=== PATIENT | female | born 1955 | race Caucasian/White ===

== ENCOUNTER 2020-07-03 12:37 | Outpatient (REF) | payer MEDICARE, MEDICAID, SELFPAY ==
--- NOTE | 2020-07-03 | XR_ITS ---
EXAMINATION: XR CHEST CLINICAL INFORMATION: Cough COMPARISON: Previous chest x-ray was recent May 2018 TECHNIQUE: 2 views of the chest were obtained. FINDINGS: The cardiac and mediastinal contours are stable. The lungs are clear. There is no pleural effusion or pneumothorax. There are degenerative changes of the spine. XR/XR chest 2V IMPRESSION: No evidence for acute disease in the chest.
== END 2020-07-03 12:38 | disposition home or self-care (01) ==
LOC: HO.HMGCX 12:37
PROVIDERS: PCP Internal Medicine; Referring Provider Internal Medicine; Visit Provider Nurse Practitioner Family
DX: Z20.828 Contact with and (suspected) exposure to other viral communicable diseases (principal); R05 Cough; R68.89 Other general symptoms and signs
CPT/HCPCS: 71046; 87635

== ENCOUNTER 2020-09-11 13:29 | Outpatient (REF) | payer MEDICARE, MEDICAID, SELFPAY ==
--- NOTE | 2020-09-11 13:32 | XR_ITS ---
EXAMINATION: XR CHEST CLINICAL INFORMATION: Chondrocostal junction syndrome. COMPARISON: None TECHNIQUE: 2 views of the chest were obtained. FINDINGS: No significant abnormality is noted involving the heart, lungs, mediastinum, bony thorax or soft tissues. XR/XR chest 2V IMPRESSION: Unremarkable chest examination.
== END 2020-09-11 13:30 | disposition home or self-care (01) ==
LOC: HO.HMGCX 13:29
PROVIDERS: PCP Internal Medicine; Visit Provider Nurse Practitioner Family
DX: M94.0 Chondrocostal junction syndrome [Tietze] (principal)
CPT/HCPCS: 71046

== ENCOUNTER 2020-09-21 14:34 | Emergency (ER) | payer MEDICARE, MEDICAID, SELFPAY ==
--- NOTE | 2020-09-21 | ECG_ITS ---
Test Reason : CHEST PRESSURE Blood Pressure : / mmHG Vent. Rate : 071 BPM Atrial Rate : 071 BPM P-R Int : 138 ms QRS Dur : 074 ms QT Int : 392 ms P-R-T Axes : 043 014 102 degrees QTc Int : 425 ms Normal sinus rhythm Nonspecific T wave abnormality Abnormal ECG When compared with ECG of 27-MAY-2018 15:03, No significant change was found Referred By: Generic ED Physician Electronically Signed By:SARWAT QUAN MD
[2020-09-21 15:17] VITALS: BP 153/68; PULSE 89; RESP 18; TEMP 36.5; O2SAT 98; BMI 31.4
--- NOTE | 2020-09-21 15:18 | XR_ITS ---
EXAMINATION: XR CHEST CLINICAL INFORMATION: Left-sided chest pain COMPARISON: Previous chest x-rays most recent 09/11/2020 TECHNIQUE: Frontal view of the chest was obtained. FINDINGS: No significant abnormality is noted involving the heart, lungs, mediastinum, bony thorax or soft tissues. XR/XR chest 1V IMPRESSION: Unremarkable examination.
--- NOTE | 2020-09-21 15:19 | ED_ITS ---
HPI - Chest Pain General Chief Complaint: Chest Pain Stated Complaint: chest pain Time Seen by Provider: 09/21/20 15:17 Source: patient Mode of arrival: ambulatory Limitations: no limitations History of Present Illness HPI narrative: 65 yo female with history of DM on insulin, HTN, fibromyalgia who presents with persistent left sided chest pain for the last 3 weeks. She also reports intermittent palpitations. She was seen in Urgent Care on 09/11 - diagnosed with costochondritis, pain was reproducible and she had normal CXR and EKG at that time. She reports continued pain on the left side and intermittent palpitations. She has a history of similar episodes and had a negative cardiac workup in the past. She denies fever, chills, cough, nausea, vomiting, abdominal pain. She denies trauma. No personal history of heart disease. No family history of clots. MD complaint: chest pain Onset (ago): week(s) (3-4) Timing of current episode: constant Prior episodes: Yes Onset: during rest and during exertion Pain location: left chest Pain radiation: none Severity: moderate Quality: aching and heaviness Relieving factors: nothing Exacerbating factors: exertion and movement Associated symptoms: dyspnea and palpitations Treatment prior to arrival: none Risk Factors Coronary artery disease risk factors: diabetes, hyperlipidemia and hypertension Thoracic aortic dissection risk factors: none Related Data On Oral Contraceptives: No Home Medications Medication Instructions Recorded Confirmed albuterol sulfate 90 mcg/actuation INHALATION 09/11/20 aerosol inhaler aspirin 81 mg tablet,delayed 81 mg PO DAILY 09/11/20 release blood sugar diagnostic #10 ea 09/11/20 buspirone 10 mg tablet 10 mg PO BID 09/11/20 famotidine 40 mg tablet 40 mg PO DAILY 09/11/20 flu vac qs 2019(4 yr up)CD(PF) ml IM 09/11/20 fluticasone propionate 50 INTRANASAL 09/11/20 mcg/actuation nasal spray,suspension insulin detemir U-100 100 unit/mL 24 unit SUBCUT DAILY 09/11/20 (3 mL) subcutaneous pen insulin glargine 100 unit/mL (3 unit SUBCUT 09/11/20 mL) subcutaneous pen insulin lispro 100 unit/mL unit SUBCUT 09/11/20 subcutaneous pen ketotifen fumarate 0.025 % (0.035 1 drp OPHTHALMIC (EYE) BID PRN 09/11/20 %) eye drops lancets 28 gauge #100 ea 09/11/20 lisinopril 2.5 mg tablet 2.5 mg PO DAILY 09/11/20 meloxicam 7.5 mg tablet 7.5 mg PO BID 09/11/20 cjxrqyne-lwuxllnqq-ubkrwlfdo 3.5 ml OTIC (EARS) 09/11/20 mg/mL-10,000 unit/mL-1 % ear solution nystatin 100,000 unit/gram topical TOPICAL BID 09/11/20 cream rosuvastatin 20 mg tablet 20 mg PO BEDTIME 09/11/20 Previous Rx's Medication Instructions Recorded cyclobenzaprine 5 mg tablet 5 mg PO BEDTIME PRN #10 tab 09/11/20 cyclobenzaprine 5 mg tablet 5 mg PO BID PRN #10 tab 09/12/20 Allergies Allergy/AdvReac Type Severity Reaction Status Date / Time metformin [METFORMIN] Allergy Unknown NAUSEA Unverified 05/24/20 15:36 Review of Systems Review of Systems: Constitutional: No Fever, No Chills ENT/Mouth: No sore throat, No Rhinorrhea, No Swallowing Difficulty Cardiovascular: + Chest Pain, + SOB, No Orthopnea, No Edema, +palpitations Respiratory: No Cough, No Sputum, No Wheezing, +dyspnea Gastrointestinal: No Nausea, No Vomiting, No Diarrhea, No abdominal Pain Genitourinary: No Dysuria, No Urinary Frequency, No Hematuria Musculoskeletal: No joint pain, No Myalgias Skin: No Skin Lesions, No rash Neuro: No Weakness, No Numbness, No Dizziness, No Headache Psych: No Anxiety/Panic, No Depression [facility] Past Medical History Attestation statement: The following information was validated with the patient. Social History Social History Advance Directives: No Advance Directives Information Provided: No Physical Exam Vital Signs: Vital Signs: Last Vital Signs Temp 97.7 F 09/21/20 15:17 Pulse 89 09/21/20 15:17 Resp 18 09/21/20 15:17 BP 153/68 H 09/21/20 15:17 Pulse Ox 98 09/21/20 15:17 Body Mass Index 31.4 Appearance: Alert. Oriented X3. No acute distress. Eyes: Pupils equal, round and reactive to light. ENT: Pharynx normal. Neck: Normal inspection. Neck supple. CVS: Normal heart rate and rhythm. Pulses normal. Anterior chest wall tenderness on the left, especially under left breast Respiratory: No respiratory distress. Breath sounds normal. Abdomen: Soft and nontender. +BS x4 Skin: Skin warm and dry. Normal skin color. Normal skin turgor. No rashes. Extremities: No lower extremity edema. Negative Jerson's sign Neuro: Oriented X 3. No motor deficit. No sensory deficit. Course Course Course Narrative: 65 yo female here with 3-4 weeks of left sided, re-producible chest pain with intermittent palpitations and SOB. Doubt ACS given duration of symptoms. Will need to r/o PE - Ddimer ordered as well as EKG, troponin, CXR. She appears well on exam and pain continues to be reproducible consistent with musculoskeletal pain. Will give dose of Toradol and reassess. Reevaluation(s) Reevaluation #1: Troponin mildly elevated at 8.9. - will get repeat in 3 hours. BNP is normal. Viral resp panel is negative. CXR normal. DDIMER is pending. Signed out to Mark Casas PA-C who will assume care. MDM - Chest Pain Lab Data Result diagrams: 09/21/20 15:58 09/21/20 15:58 Labs: Lab Results 09/21/20 09/21/20 09/21/20 Range/Units 15:58 15:58 15:58 WBC 12.8 H (4.8-10.8) X10*3/uL RBC 4.37 (4.20-5.50) X10*6/uL Hgb 12.0 (12.0-16.0) g/dl Hct 37.8 (37-47) % MCV 86.5 (80-98) fL MCH 27.5 (27.0-33.0) pg MCHC 31.7 (31.0-35.0) g/dl RDW 14.1 (11.0-16.0) % Plt Count 253 (160-400) X10*3/uL MPV 11.8 (9.4-12.3) fL Immature Gran % (Auto) 0.3 (0.0-0.4) % Neut % (Auto) 78.9 H (45-73) % Lymph % (Auto) 14.6 L (20-40) % [place] % (Auto) 5.0 (2-11) % Eos % (Auto) 0.9 (0-4) % Baso % (Auto) 0.3 (0-2) % Lymph # (Auto) 1.9 (1.2-4.9) X10*3/uL [place] # (Auto) 0.6 (0.1-1.2) X10*3/uL Eos # (Auto) 0.1 (0.0-0.4) X10*3/uL Baso # (Auto) 0.0 (0.0-0.2) X10*3/uL Abs Immat Gran (auto) 0.04 H (0.00-0.03) X10*3/uL Absolute Neuts (auto) 10.1 H (2.0-8.3) X10*3/uL Absolute Nucleated RBC 0.000 (0.0-0.012) X10*3/uL Nucleated RBC % (auto) 0.0 (0.0-0.2) /100WBC Sodium 139 (135-145) mmol/L Potassium 5.1 (3.3-5.1) mmol/l Chloride 106 (96-108) mmol/L Carbon Dioxide 22 (22-29) mmol/L Anion Gap 16 (12-20) BUN 14 (9-16) mg/dL Creatinine 0.83 (0.5-1.4) mg/dL Estim Creat Clear Calc 72.3 Estimated GFR > 60 Random Glucose 244 H (60-115) mg/dL Calcium 9.1 (8.4-10.2) mg/dL Magnesium 1.9 (1.6-2.6) mg/dL Troponin I High Sens 8.9 (<3.5-17.0) ng/L C-Reactive Protein 0.36 (< or = 0.50) mg/dL B-Natriuretic Peptide 24 (<100) pg/mL Coronavirus (PCR) (Negative) Influenza Type A (PCR) (Negative) Influenza Type B (PCR) (Negative) RSV RNA Qual (PCR) (Negative) 09/21/20 Range/Units 16:04 WBC (4.8-10.8) X10*3/uL RBC (4.20-5.50) X10*6/uL Hgb (12.0-16.0) g/dl Hct (37-47) % MCV (80-98) fL MCH (27.0-33.0) pg MCHC (31.0-35.0) g/dl RDW (11.0-16.0) % Plt Count (160-400) X10*3/uL MPV (9.4-12.3) fL Immature Gran % (Auto) (0.0-0.4) % Neut % (Auto) (45-73) % Lymph % (Auto) (20-40) % [place] % (Auto) (2-11) % Eos % (Auto) (0-4) % Baso % (Auto) (0-2) % Lymph # (Auto) (1.2-4.9) X10*3/uL [place] # (Auto) (0.1-1.2) X10*3/uL Eos # (Auto) (0.0-0.4) X10*3/uL Baso # (Auto) (0.0-0.2) X10*3/uL Abs Immat Gran (auto) (0.00-0.03) X10*3/uL Absolute Neuts (auto) (2.0-8.3) X10*3/uL Absolute Nucleated RBC (0.0-0.012) X10*3/uL Nucleated RBC % (auto) (0.0-0.2) /100WBC Sodium (135-145) mmol/L Potassium (3.3-5.1) mmol/l Chloride (96-108) mmol/L Carbon Dioxide (22-29) mmol/L Anion Gap (12-20) BUN (9-16) mg/dL Creatinine (0.5-1.4) mg/dL Estim Creat Clear Calc Estimated GFR Random Glucose (60-115) mg/dL Calcium (8.4-10.2) mg/dL Magnesium (1.6-2.6) mg/dL Troponin I High Sens (<3.5-17.0) ng/L C-Reactive Protein (< or = 0.50) mg/dL B-Natriuretic Peptide (<100) pg/mL Coronavirus (PCR) NEGATIVE (Negative) Influenza Type A (PCR) NEGATIVE (Negative) Influenza Type B (PCR) NEGATIVE (Negative) RSV RNA Qual (PCR) NEGATIVE (Negative) ECG Data ECG #1: Attestation: I personally reviewed and interpreted this ECG as follows: ECG interpretation date: 09/21/20 ECG interpretation time: 15:23 Prior ECG tracings: available for review Interpretation: normal sinus rhythm, HR 71 bpm, nonspecific T wave abnormality, normal MD interval, normal QTc, no ST segment elevations Discharge Plan Discharge Prescriptions: No Action (DME) FreeStyle Lite Strips Strip See Rx Instructions ea Not Applicable TID Qty: 10 RF: 0 aspirin 81 mg tablet,delayed release (DR/EC) 81 mg PO DAILY RF: 0 rosuvastatin 20 mg tablet 20 mg PO BEDTIME RF: 0 famotidine 40 mg tablet 40 mg PO DAILY RF: 0 Lantus Solostar U-100 Insulin 100 unit/mL (3 mL) insulin pen subcut RF: 0 fluticasone propionate 50 mcg/actuation spray,suspension intranasal RF: 0 albuterol sulfate 90 mcg/actuation HFA aerosol inhaler inhalation RF: 0 Flucelvax Quad [id number] (PF) 60 mcg (15 mcg x 4)/0.5 mL syringe IM RF: 0 gtoowgbp-jmpdvhueq-VQ 3.5-10,000-1 mg/mL-unit/mL-% solution otic (ears) RF: 0 ketotifen fumarate 0.025 % (0.035 %) drops 1 drp ophthalmic (eye) BID PRNRF: 0 lisinopril 2.5 mg tablet 2.5 mg PO DAILY RF: 0 nystatin 100,000 unit/gram cream topical BID RF: 0 Levemir FlexTouch U-100 Insuln 100 unit/mL (3 mL) insulin pen 24 unit subcut DAILY RF: 0 insulin lispro 100 unit/mL insulin pen subcut RF: 0 (DME) lancets 28 gauge misc See Rx Instructions ea topical TID Qty: 100 RF: 0 buspirone 10 mg tablet 10 mg PO BID RF: 0 meloxicam 7.5 mg tablet 7.5 mg PO BID RF: 0 cyclobenzaprine 5 mg tablet 5 mg PO BEDTIME PRN (Reason: muscle spasm) Qty: 10 RF: 0 cyclobenzaprine 5 mg tablet 5 mg PO BID PRN (Reason: muscle spasm) Qty: 10 RF: 0
[2020-09-21 16:03] LABS: MANUAL DIFF FLAG NO
[2020-09-21 16:04] LABS: Basophils Percent Auto 0.3 % (0-2); Eosinophils Absolute Auto 0.1 X10*3/uL (0.0-0.4); Eosinophils Percent Auto 0.9 % (0-4); Hematocrit 37.8 % (37-47); Imm Gran Abs Auto 0.04 X10*3/uL (0.00-0.03); Imm Gran Pct Auto 0.3 % (0.0-0.4); Lymphocytes Absolute Auto 1.9 X10*3/uL (1.2-4.9); Lymphocytes Percent Auto 14.6 % (20-40); Mean Corpuscular HGB Conc 31.7 g/dl (31.0-35.0); Mean Corpuscular Hemoglobin 27.5 pg (27.0-33.0); Mean Corpuscular Volume 86.5 fL (80-98); Mean Platelet Volume 11.8 fL (9.4-12.3); Monocytes Absolute Auto 0.6 X10*3/uL (0.1-1.2); Neutrophils Absolute Auto 10.1 X10*3/uL (2.0-8.3); Neutrophils Percent Auto 78.9 % (45-73); Platelet Count 253 X10*3/uL (160-400); Red Blood Count 4.37 X10*6/uL (4.20-5.50); Red Cell Distribution Width 14.1 % (11.0-16.0); White Blood Count 12.8 X10*3/uL (4.8-10.8)
[2020-09-21 16:39] LABS: Anion Gap 16 (12-20); Blood Urea Nitrogen 14 mg/dL (9-16); C Reactive Protein 0.36 mg/dL (< or = 0.50); Calcium 9.1 mg/dL (8.4-10.2); Carbon Dioxide 22 mmol/L (22-29); Chloride 106 mmol/L (96-108); Creatinine Clr Calc Pharmacy 72.3; Estimated Glomerular Filt Rate > 60; Glucose Random 244 mg/dL (60-115); Magnesium 1.9 mg/dL (1.6-2.6); Potassium 5.1 mmol/l (3.3-5.1); Sodium 139 mmol/L (135-145)
[2020-09-21 16:41] LABS: B Type Natriuretic Peptide 24 pg/mL (<100); Troponin-I High Sensitivity 8.9 ng/L (<3.5-17.0)
[2020-09-21 16:55] LABS: Influenza A PCR NEGATIVE (Negative); Influenza B PCR NEGATIVE (Negative); Resp Syncy Virus RNA Qual PCR NEGATIVE (Negative); SARS COV2 PCR INHOUSE NEGATIVE (Negative)
[2020-09-21] MEDS: Ketorolac Tromethamine 30 MG/ML VIAL IVPUSH (17:39)
[2020-09-21 18:47] LABS: Prothrombin Time 11.3 SEC (10.8-13.0)
[2020-09-21 18:50] LABS: Partial Thromboplastin Time 31.2 SEC (24.1-38.0)
[2020-09-21 18:54] LABS: D Dimer < 200 NG/ML
[2020-09-21 19:13] LABS: Troponin-I High Sensitivity 8.6 ng/L (<3.5-17.0)
[2020-09-21 20:18] VITALS: BP 141/63; PULSE 70; RESP 12; TEMP 36.9; O2SAT 100
== END 2020-09-21 20:46 | disposition home or self-care (01) ==
PROVIDERS: Physician Assistant; Emergency Provider Emergency Medicine
DX: R07.9 Chest pain, unspecified (principal); Z20.822 Contact with and (suspected) exposure to COVID-19; E11.9 Type 2 diabetes mellitus without complications; I10 Essential (primary) hypertension; Z79.4 Long term (current) use of insulin
CPT/HCPCS: 0241U; 36415; 71045; 80048; 83735; 83880; 84484; 85025; 85379; 85610; 85730; 86140; 93005; 96372; 96374; 99283; 99284; J1885

== ENCOUNTER 2020-10-02 13:44 | Outpatient (REF) | payer MEDICARE, MEDICAID, SELFPAY ==
--- NOTE | 2020-10-02 13:48 | XR_ITS ---
EXAMINATION: XR LUMBOSACRAL SPINE CLINICAL INFORMATION: Muscle strain, pain low back COMPARISON: Radiographs lumbar spine 10/30/2009, CT abdomen and pelvis 10/01/2017 TECHNIQUE: Three views of the lumbosacral spine. FINDINGS: There is normal lumbar segmentation with 5 nonrib-bearing lumbar vertebrae of normal height and normal lumbar lordosis. There is no lumbar vertebral compression, spondylolisthesis, destructive process. Again, there is vertebral spurring L3-L5 with borderline degenerative disc changes L3-L4. There is no interval focal disc narrowing. The SI joints and visualized sacrum are unremarkable. XR/XR lumbar spine 2-3V IMPRESSION: Mild degenerative changes lower lumbar spine similar to prior radiographs 2009.
[2020-10-02 16:34] LABS: MANUAL DIFF FLAG NO
[2020-10-02 16:37] LABS: Basophils Absolute Auto 0.1 X10*3/uL (0.0-0.2); Basophils Percent Auto 0.6 % (0-2); Eosinophils Absolute Auto 0.2 X10*3/uL (0.0-0.4); Hematocrit 40.6 % (37-47); Hemoglobin 12.9 g/dl (12.0-16.0); Imm Gran Abs Auto 0.03 X10*3/uL (0.00-0.03); Imm Gran Pct Auto 0.3 % (0.0-0.4); Lymphocytes Absolute Auto 3.2 X10*3/uL (1.2-4.9); Mean Corpuscular HGB Conc 31.8 g/dl (31.0-35.0); Mean Corpuscular Hemoglobin 27.4 pg (27.0-33.0); Mean Corpuscular Volume 86.2 fL (80-98); Mean Platelet Volume 12.6 fL (9.4-12.3); Monocytes Absolute Auto 0.6 X10*3/uL (0.1-1.2); Monocytes Percent Auto 5.7 % (2-11); Neutrophils Absolute Auto 5.7 X10*3/uL (2.0-8.3); Neutrophils Percent Auto 58.4 % (45-73); Platelet Count 284 X10*3/uL (160-400); Red Blood Count 4.71 X10*6/uL (4.20-5.50); Red Cell Distribution Width 13.9 % (11.0-16.0); White Blood Count 9.7 X10*3/uL (4.8-10.8)
[2020-10-02 17:06] LABS: Alanine Aminotransferase 14 U/L (0-31); Albumin Level 4.7 g/dL (3.5-5.0); Alkaline Phosphatase 86 U/L (39-117); Anion Gap 16 (12-20); Aspartate Amino Transferase 14 U/L (5-31); Bilirubin Direct 0.2 mg/dL (0.0-0.5); Bilirubin Total 0.4 mg/dL (0.0-1.0); Blood Urea Nitrogen 14 mg/dL (9-16); Calcium 9.7 mg/dL (8.4-10.2); Carbon Dioxide 25 mmol/L (22-29); Chloride 103 mmol/L (96-108); Estimated Glomerular Filt Rate > 60; Glucose Random 186 mg/dL (60-115); Potassium 4.8 mmol/l (3.3-5.1); Sodium 139 mmol/L (135-145); Total Protein 7.8 g/dL (6.5-8.0)
[2020-10-02 17:29] LABS: TSH reflex Free T4 1.51 mIU/mL (0.32-4.0)
[2020-10-03 08:01] LABS: Estimated Average Glucose 183 mg/dL
[2020-10-03 08:48] LABS: LDL Cholesterol Direct 99 mg/dL (<100)
[2020-10-06 12:57] LABS: Vitamin D 25-OH, D2 <4 ng/mL; Vitamin D 25-OH, D3 18 ng/mL; Vitamin D 25-OH, Total 18 ng/mL (30-100)
== END 2020-10-02 13:45 | disposition home or self-care (01) ==
LOC: HO.HMGCX 13:44
PROVIDERS: PCP Internal Medicine; Visit Provider Nurse Practitioner Family
DX: G89.29 Other chronic pain (principal); M54.5 Low back pain; S39.012A Strain of muscle, fascia and tendon of lower back, initial encounter; F41.9 Anxiety disorder, unspecified; E78.9 Disorder of lipoprotein metabolism, unspecified; I10 Essential (primary) hypertension; K21.9 Gastro-esophageal reflux disease without esophagitis; M79.7 Fibromyalgia; E13.9 Other specified diabetes mellitus without complications; Z79.4 Long term (current) use of insulin; Z91.09 Other allergy status, other than to drugs and biological substances; X58.XXXA Exposure to other specified factors, initial encounter; Y93.9 Activity, unspecified; Y92.9 Unspecified place or not applicable; Y99.9 Unspecified external cause status
CPT/HCPCS: 36415; 72100; 80048; 80076; 82306; 83036; 83721; 84443; 85025

== ENCOUNTER 2020-10-04 | Outpatient (REF) | payer MEDICARE, MEDICAID, SELFPAY ==
[2020-10-04 12:28] LABS: Creatinine Urine 54.28 mg/dL; Microalbumin Urine < 5.0 mg/L
== END 2020-10-04 00:01 | disposition home or self-care (01) ==
LOC: HO.HMGCLNP
PROVIDERS: PCP Internal Medicine; Visit Provider Internal Medicine
DX: E13.9 Other specified diabetes mellitus without complications (principal); E78.9 Disorder of lipoprotein metabolism, unspecified; F41.9 Anxiety disorder, unspecified; I10 Essential (primary) hypertension; K21.9 Gastro-esophageal reflux disease without esophagitis; M54.9 Dorsalgia, unspecified; G89.29 Other chronic pain; M79.7 Fibromyalgia; Z91.09 Other allergy status, other than to drugs and biological substances; Z76.89 Persons encountering health services in other specified circumstances; Z79.4 Long term (current) use of insulin
CPT/HCPCS: 82043

== ENCOUNTER 2020-12-04 13:54 | Outpatient (REF) | payer MEDICARE, MEDICAID, SELFPAY | END 2020-12-04 13:55 | disposition home or self-care (01) | LOC: HO.HMGCLDS 13:54 | PROVIDERS: PCP Internal Medicine; Visit Provider Internal Medicine | DX: Z20.822 Contact with and (suspected) exposure to COVID-19 (principal) | CPT/HCPCS: C9803; U0003; U0005 ==

== ENCOUNTER 2020-12-24 09:34 | Outpatient (REF) | payer MEDICARE, MEDICAID, SELFPAY ==
--- NOTE | ~2020-12-24 | XR_ITS ---
EXAMINATION: XR CHEST CLINICAL INFORMATION: Cough COMPARISON: Chest radiographs 09/21/2020, 09/11/2020 TECHNIQUE: 2 views of the chest were obtained. FINDINGS: There are scattered subtle subpleural groundglass opacity right upper and lower zones, new from prior exam 09/21/2020. There is linear disc atelectasis at bilateral costophrenic angle. There is no lobar segmental airspace consolidation. No effusion. The heart is normal in size. The hilar and mediastinal contours are normal. XR/XR chest 2V IMPRESSION: Scattered subpleural groundglass opacities on right with bibasilar disc atelectasis. Findings new from prior exam 09/21/2020, possibly atypical or viral pneumonia.
== END 2020-12-24 09:35 | disposition home or self-care (01) ==
LOC: HO.HMGCX 09:34
PROVIDERS: PCP Internal Medicine; Visit Provider Hospitalist
DX: R05 Cough (principal)
CPT/HCPCS: 71046

== ENCOUNTER 2021-01-04 11:22 | Outpatient (REF) | payer MEDICARE, MEDICAID, SELFPAY | END 2021-01-04 11:23 | disposition home or self-care (01) | LOC: HO.HMGCLDS 11:22 | PROVIDERS: PCP Internal Medicine; Visit Provider Internal Medicine | DX: Z20.822 Contact with and (suspected) exposure to COVID-19 (principal) | CPT/HCPCS: C9803; U0003; U0005 ==

== ENCOUNTER 2021-03-13 10:44 | Outpatient (REF) | payer MEDICARE, MEDICAID, SELFPAY ==
--- NOTE | ~2021-03-13 | XR_ITS ---
EXAMINATION: XR CLAVICLE, RIGHT CLINICAL INFORMATION: Shoulder pain. COMPARISON: None TECHNIQUE: Two views of the right clavicle. FINDINGS: There is no evidence of acute fracture or dislocation of the clavicle. No widening of the coracoclavicular space is seen. There is some mild sclerosis without significant narrowing of the right acromioclavicular joint. No significant soft tissue swelling appreciated. Visualized portions of the shoulder are unremarkable. XR/XR clavicle RT IMPRESSION: No significant right clavicle abnormality appreciated.
[2021-03-13 14:08] LABS: Estimated Average Glucose 203 mg/dL; Hemoglobin A1c % 8.7 %
[2021-03-13 14:24] LABS: Alanine Aminotransferase 18 U/L (0-31); Albumin Level 4.3 g/dL (3.5-5.0); Alkaline Phosphatase 92 U/L (39-117); Anion Gap 14 (12-20); Aspartate Amino Transferase 17 U/L (5-31); Bilirubin Total 0.5 mg/dL (0.0-1.0); Blood Urea Nitrogen 14 mg/dL (9-16); Calcium 9.9 mg/dL (8.4-10.2); Carbon Dioxide 26 mmol/L (22-29); Chloride 105 mmol/L (96-108); Estimated Glomerular Filt Rate > 60; Glucose Random 201 mg/dL (60-115); Potassium 4.8 mmol/L (3.3-5.1); Sodium 140 mmol/L (135-145); Total Protein 7.2 g/dL (6.5-8.0)
== END 2021-03-13 10:45 | disposition home or self-care (01) ==
LOC: HO.HMGCX 10:44
PROVIDERS: PCP Internal Medicine; Visit Provider Internal Medicine
DX: M89.8X1 Other specified disorders of bone, shoulder (principal); E13.9 Other specified diabetes mellitus without complications; E78.9 Disorder of lipoprotein metabolism, unspecified; F41.9 Anxiety disorder, unspecified; I10 Essential (primary) hypertension; K21.9 Gastro-esophageal reflux disease without esophagitis; Z79.4 Long term (current) use of insulin
CPT/HCPCS: 36415; 73000; 80053; 83036